=== PATIENT | male | born 1995 | race African-American/Black ===

== ENCOUNTER 2017-05-13 16:53 | Emergency (ER) | payer OTHER ==
[~2017-05-13] VITALS: Ht 172.7 cm; Wt 63.5 kg
[~2017-05-13 16:53] MED LIST: BENTYL10 M1 PO; DICYCLOMINE HCL20 MG PO; NO MEDICATIONS; ZOFRAN ODT4 MG/UDTAB PO; ZOFRAN PO
[2017-05-13 18:23] LABS: BASOPHIL% 0.8 % (0-2.5); EOSINOPHIL# 0.1 X10e3 (0-0.7); EOSINOPHIL% 2.5 % (0.0-7.0); HEMATOCRIT 46.1 % (38.0-50.0); HEMOGLOBIN 15.8 gm/dL (13.0-16.0); LYMPHOCYTE# 2.4 X10e3 (1.0-3.5); LYMPHOCYTE% 40.1 % (17.0-45.0); MEAN CELL VOLUME 96.2 FL (83-96); MEAN CORPUSCULAR HEMOGLOBIN 32.9 PG (28-34); MEAN CORPUSCULAR HGB CONC 34.2 g/dL (30-36); MONOCYTE# 0.7 X10e3 (0-1.0); MONOCYTE% 11.1 % (3.0-12.0); NEUTROPHIL# 2.7 X10e3 (1.5-7.1); NEUTROPHIL% 45.5 % (40-75); PLATELET COUNT 241 X10e3 (140-420); RED BLOOD COUNT 4.79 X10e (3.90-5.60); RED CELL DISTRIBUTION WIDTH 13.6 % (11.0-15.5); WHITE BLOOD COUNT 5.9 X10e3 (4.0-10.5)
[2017-05-13 18:31] LABS: DIFF IND NO
[2017-05-13 18:45] LABS: ALBUMIN SERUM 4.6 g/dL (3.5-5.0); BILIRUBIN, DIRECT 0.2 mg/dL (0.0-0.2); BILIRUBIN,TOTAL 1.2 mg/dL (0.2-2.0); GLOM FILT RATE Estimated 125.9 mL/min (>60); POTASSIUM 3.7 mmol/L (3.5-5.1); PROTEIN TOTAL SERUM 7.5 g/dL (6.0-8.3)
== END 2017-05-13 20:02 | disposition home or self-care (01) ==
LOC: SED 16:53
PROVIDERS: Physician Assistant
DX: R11.2 Nausea with vomiting, unspecified (principal); R19.7 Diarrhea, unspecified
CPT/HCPCS: 80048; 80076; 83690; 85025; 96361; 96374; 99284; J2405